=== PATIENT | male | born 1975 | race Caucasian/White ===

== ENCOUNTER 2020-10-13 15:34 | Emergency (ER) | payer MEDICARE ==
[~2020-10-13] VITALS: Ht 177.8 cm; Wt 106.6 kg
--- NOTE | 2020-10-13 15:34 | NUR ---
PT BIBRA86/PD C/O BIZZARE BEHAVIOR. PT IS AAOX4, NOT IN RESPIRATORY DISTRESS, V/S STABLE, KEPT RESTED AND COMFORTABLE. SITTER AT BEDSIDE. WILL CONTINUE TO MONITOR.
[2020-10-13 16:06] VITALS: BP 148/96
[2020-10-13 16:20] LABS: BASOPHILS # (AUTO) 0.1 K/uL (0.0-0.2); BASOPHILS % (AUTO) 0.9 % (0.0-2.0); EOSINOPHILS % (AUTO) 0.9 % (0.0-6.0); HEMATOCRIT 47 % (39-51); HEMOGLOBIN 16.2 g/dL (13.5-17.5); LYMPHOCYTES # (AUTO) 1.4 K/uL (0.8-4.8); LYMPHOCYTES % (AUTO) 16.6 % (20.0-44.0); MEAN CORPUSCULAR HGB CONC 35 g/dl (31.0-36.0); MEAN CORPUSCULAR VOLUME 87 fL (80-96); MONOCYTES # (AUTO) 0.9 K/uL (0.1-1.30); MONOCYTES % (AUTO) 10.5 % (2.0-12.0); NEUTROPHILS % (AUTO) 71.1 % (43.0-81.0); PLATELET COUNT (AUTO) 228 K/uL (150-450); RED BLOOD CELL COUNT(AUTO) 5.39 MIL/uL (4.5-6.0); WHITE BLOOD COUNT (AUTO) 8.4 K/uL (4.3-11.0)
[2020-10-13 16:29] LABS: CALCIUM, SERUM 9.3 mg/dL (8.5-10.1); CARBON DIOXIDE 28 mmol/L (21-32); CHLORIDE 105 mmol/L (98-107); CREATININE 0.8 mg/dL (0.6-1.3); GLUCOSE 144 mg/dL (74-106); SODIUM SERUM 142 mmol/L (136-145); UREA NITROGEN, BLOOD 16 mg/dL (7-18)
[2020-10-13 16:35] LABS: ALANINE AMINOTRANSFERASE 36 U/L (12-78); ALBUMIN 4.2 g/dL (3.4-5.0); ALKALINE PHOSPHATASE 75 U/L (46-116); ASPARTATE AMINOTRANSFERASE 20 U/L (15-37); BILIRUBIN,DIRECT 0.2 mg/dL (0.0-0.2); BILIRUBIN,TOTAL 0.6 mg/dL (0.2-1.0); TOTAL PROTEIN, SERUM 7.4 g/dL (6.4-8.2)
[2020-10-13 16:39] LABS: ACETAMINOPHEN < 2 ug/ml (10-30); ALCOHOL, BLOOD < 3 mg/dL (0-0)
[2020-10-13 16:52] LABS: CREATINE KINASE, TOTAL 86 U/L (39-308)
[2020-10-13] MEDS ORDERED: OLANZAPINE 5 MG TABLET PO ONE (17:00)
--- NOTE | 2020-10-13 17:05 | NUR ---
CALLED [facility] AN HOUR.
[2020-10-13] MEDS ORDERED: OLANZAPINE 5 MG TABLET ONE (17:17)
--- NOTE | 2020-10-13 17:43 | NUR ---
URINE SPECIMEN COLLECTED AND SENT TO LAB.
[2020-10-13 17:48] LABS: BILIRUBIN,URINE SMALL (NEGATIVE); COLOR,URINE ORANGE (YELLOW); LEUKOCYTE ESTERASE ,URINE Negative (NEGATIVE); NITRITE, URINE Negative (NEGATIVE); PH,URINE 6.5 (5.0-8.0); PROTEIN,URINE 30 mg/dl (NEGATIVE); UGLUCOSE Negative (NEGATIVE)
[2020-10-13 18:08] LABS: BACTERIA,URINE Rare /HPF (None Seen); RBC,URINE NONE SEEN /HPF (0-2); SQUAMOUS EPITHELIAL CELL,UR Few /HPF (None Seen); WBC,URINE NONE SEEN /HPF (0-3)
--- NOTE | 2020-10-14 02:16 | NUR ---
[facility]RE[facility] - CRISIS TEAM AT BEDSIDE FOR EVAL. CLEARED BY TERRELL.
--- NOTE | 2020-10-14 02:26 | NUR ---
Patient eloped from facility. ER MD notified.
== END 2020-10-14 02:27 | disposition left against medical advice (07) ==
LOC: ER 15:41
DX: F29 Unspecified psychosis not due to a substance or known physiological condition (principal); F22 Delusional disorders; E86.0 Dehydration; F17.200 Nicotine dependence, unspecified, uncomplicated; F15.10 Other stimulant abuse, uncomplicated; Z59.0 Homelessness
CPT/HCPCS: 36415; 80048-TC; 80076-TC; 81001; 82550-TC; 85025-TC; G0480